=== PATIENT | male | born 1975 | race Caucasian/White ===

== ENCOUNTER 2020-04-10 10:28 | Inpatient (IN) | payer MEDICAID, OTHER ==
[~2020-04-10] VITALS: Ht 172.7 cm; Wt 100.6 kg
[~2020-04-10 10:28] MED LIST: ARIP15TA2 PO; CLOZ100T32 PO; DIVA-80 PO; OLAN2.5T3 PO; TRAZ150 PO
[2020-04-10] MEDS ORDERED: CLOZ100T32 PO (10:43)
[2020-04-10 11:42] LABS: BASOPHILS % (AUTO) 0.5 % (0.0-2.0); EOSINOPHILS % (AUTO) 2.1 % (1.0-6.0); HEMOGLOBIN 15.2 g/dL (13.5-17.5); LYMPHOCYTES # (AUTO) 1.6 K/uL (1.0-4.8); LYMPHOCYTES % (AUTO) 22.6 % (22.0-44.0); MEAN CORPUSCULAR HEMOGLOBIN 31.4 pg (26.0-34.0); MEAN CORPUSCULAR HGB CONC 34.5 G/dL (31.0-37.0); MEAN CORPUSCULAR VOLUME 91 fL (80-100); MONOCYTES # (AUTO) 0.5 K/uL (0.1-1.0); NEUTROPHILS # (AUTO) 4.8 K/uL (1.8-7.7); NEUTROPHILS % (AUTO) 67.8 % (40.0-70.0); PLATELET COUNT (AUTO) 222 K/uL (150-450); RED BLOOD CELL COUNT(AUTO) 4.84 MIL/uL (4.50-5.90); RED CELL DISTRIBUTION WIDTH 13.2 % (11.5-14.5)
[2020-04-10 11:49] LABS: AMPHET/METH SCREEN,URINE NEGATIVE (NEGATIVE); BARBITURATE SCREEN, URINE NEGATIVE (NEGATIVE); BENZODIAZEPINES SCREEN,URINE NEGATIVE (NEGATIVE); CANNABINOID SCREEN,URINE NEGATIVE (NEGATIVE); COCAINE SCREEN,URINE NEGATIVE (NEGATIVE); METHADONE SCREEN, URINE NEGATIVE (NEGATIVE); OPIATE SCREEN,URINE NEGATIVE (NEGATIVE); PHENCYCLIDINE SCREEN,URINE NEGATIVE (NEGATIVE)
[2020-04-10 12:00] LABS: ANION GAP 9 mmol/L (8-16); CALCIUM, TOTAL 9.1 mg/dL (8.8-10.5); CARBON DIOXIDE 28 mmol/L (22-29); CHLORIDE 108 mmol/L (98-107); CREATININE 0.94 mg/dL (0.60-1.30); GLOMERULAR FILTR. RATE CALC > 60 mL/min (>60); GLUCOSE,RANDOM 101 mg/dL (70-110); POTASSIUM 3.9 mmol/L (3.5-5.1); SODIUM SERUM 145 mmol/L (136-145); UREA NITROGEN, BLOOD 13 mg/dL (7-18)
[2020-04-10 12:04] LABS: ALANINE AMINOTRANSFERASE 72 U/L (12-78); ALKALINE PHOSPHATASE 83 U/L (46-116); ASPARTATE AMINOTRANSFERASE 31 U/L (15-37); BILIRUBIN,TOTAL 0.8 mg/dL (0.1-1.0)
[2020-04-10] MEDS ORDERED: ZOLPIDEM TARTRATE 10 MG TABLET PO PRN (13:45)
[2020-04-10] MEDS ORDERED: LORazepam 2 MG TABLET PO PRN (13:45)
[2020-04-10] MEDS ORDERED: HALOPERIDOL 5 MG TABLET PO PRN (13:45)
[2020-04-10] MEDS ORDERED: OLAN10TA3 PO (13:47)
[2020-04-10] MEDS: DIVALPROEX SODIUM 500 MG ER TABLET PO SCH (16:03)
[2020-04-10 17:05] VITALS: BP 134/86
[2020-04-10] MEDS: TERBINAFINE HCL 1% 30 GM CREAM TP SCH (20:29)
[2020-04-10] MEDS: TraZODone HCL 150 MG TABLET PO SCH (20:30)
[2020-04-10] MEDS: CloZAPine 100 MG TABLET PO SCH (20:31)
[2020-04-10] MEDS: OLANZapine 10 MG TABLET PO SCH (20:31)
[2020-04-11 06:49] LABS: BASOPHILS % (AUTO) 0.4 % (0.0-2.0); EOSINOPHILS % (AUTO) 4.3 % (1.0-6.0); HEMATOCRIT 43.4 % (41-53); HEMOGLOBIN 15.1 g/dL (13.5-17.5); LYMPHOCYTES # (AUTO) 2.1 K/uL (1.0-4.8); LYMPHOCYTES % (AUTO) 30.2 % (22.0-44.0); MEAN CORPUSCULAR HEMOGLOBIN 31.7 pg (26.0-34.0); MEAN CORPUSCULAR HGB CONC 34.8 G/dL (31.0-37.0); MEAN CORPUSCULAR VOLUME 91 fL (80-100); MONOCYTES # (AUTO) 0.5 K/uL (0.1-1.0); MONOCYTES % (AUTO) 7.1 % (2.0-9.0); PLATELET COUNT (AUTO) 212 K/uL (150-450); RED BLOOD CELL COUNT(AUTO) 4.75 MIL/uL (4.50-5.90); RED CELL DISTRIBUTION WIDTH 13.3 % (11.5-14.5)
[2020-04-11 07:17] LABS: ALANINE AMINOTRANSFERASE 67 U/L (12-78); ALBUMIN 3.7 g/dL (3.4-5.0); ALKALINE PHOSPHATASE 85 U/L (46-116); ANION GAP 6 mmol/L (8-16); ASPARTATE AMINOTRANSFERASE 26 U/L (15-37); BILIRUBIN,TOTAL 0.8 mg/dL (0.1-1.0); CALCIUM, TOTAL 8.7 mg/dL (8.8-10.5); CARBON DIOXIDE 30 mmol/L (22-29); CHLORIDE 107 mmol/L (98-107); CREATININE 1.06 mg/dL (0.60-1.30); GLOMERULAR FILTR. RATE CALC > 60 mL/min (>60); GLUCOSE,RANDOM 110 mg/dL (70-110); POTASSIUM 4.4 mmol/L (3.5-5.1); SODIUM SERUM 143 mmol/L (136-145); THYROID STIMULATING HORMONE 1.28 uIU/mL (0.36-3.74); TOTAL PROTEIN, SERUM 7.2 g/dL (6.4-8.2); UREA NITROGEN, BLOOD 15 mg/dL (7-18); VALPROIC ACID 34 mcg/mL (50-100)
[2020-04-11] MEDS: NICOTINE 14 MG/24 HOUR PATCH TD SCH (09:00)
[2020-04-11] MEDS: ARIPiprazole 15 MG TABLET PO SCH (09:04)
[2020-04-11] MEDS: TERBINAFINE HCL 1% 30 GM CREAM TP SCH ×2 (09:05→16:11)
[2020-04-11] MEDS: CloZAPine 100 MG TABLET PO SCH ×2 (09:05→20:24)
[2020-04-11] MEDS: DIVALPROEX SODIUM 500 MG ER TABLET PO SCH ×2 (09:07→16:11)
[2020-04-11 10:04] VITALS: BP 134/93
[2020-04-11 16:00] VITALS: BP 142/92
[2020-04-11 16:33] VITALS: BP 142/92
[2020-04-11] MEDS: OLANZapine 10 MG TABLET PO SCH (20:23)
[2020-04-11] MEDS: TraZODone HCL 150 MG TABLET PO SCH (20:24)
[2020-04-12] MEDS: DIVALPROEX SODIUM 500 MG ER TABLET PO SCH ×2 (08:34→16:29)
[2020-04-12] MEDS: ARIPiprazole 15 MG TABLET PO SCH (08:34)
[2020-04-12] MEDS: TERBINAFINE HCL 1% 30 GM CREAM TP SCH ×2 (08:35→16:29)
[2020-04-12] MEDS: CloZAPine 100 MG TABLET PO SCH ×2 (08:36→20:57)
[2020-04-12] MEDS: NICOTINE 14 MG/24 HOUR PATCH TD SCH (08:37)
[2020-04-12 08:57] VITALS: BP 131/72
[2020-04-12] MEDS ORDERED: PETROLATUM,WHITE 28 GM JELLY TP PRN (10:30)
[2020-04-12] MEDS ORDERED: ACETAMINOPHEN 325 MG TABLET PO PRN (10:30)
[2020-04-12] MEDS ORDERED: ONDANSETRON HCL 4 MG TABLET PO PRN (10:30)
[2020-04-12] MEDS ORDERED: CloNIDine HCL 0.1 MG TABLET PO PRN (10:30)
[2020-04-12] MEDS ORDERED: LOPERAMIDE HCL 2 MG CAPSULE PO PRN (10:30)
[2020-04-12] MEDS ORDERED: NICOTINE 14 MG/24 HOUR PATCH TD PRN (10:30)
[2020-04-12] MEDS ORDERED: GuaiFENesin/D-METHORPHAN [SUGAR-FREE] 200-20MG/10 ML SYRUP UDCUP PO PRN (10:30)
[2020-04-12] MEDS ORDERED: ALBUTEROL SULFATE HFA 90 MCG/PUFF 8 GM INHALER IH PRN (10:30)
[2020-04-12] MEDS ORDERED: IBUPROFEN 400 MG TABLET PO PRN (10:30)
[2020-04-12] MEDS ORDERED: MAGNESIUM HYDROXIDE SUSPENSION 30 ML UDCUP PO PRN (10:30)
[2020-04-12] MEDS ORDERED: DOCUSATE SODIUM 100 MG CAPSULE PO PRN (10:30)
[2020-04-12 16:24] VITALS: BP 138/86
[2020-04-12] MEDS: TraZODone HCL 150 MG TABLET PO SCH (20:57)
[2020-04-12] MEDS: OLANZapine 10 MG TABLET PO SCH (20:57)
[2020-04-12] MEDS: MAG HYDROX/AL HYDROX/SIMETH ES 30 ML SUSPENSION UDCUP PO PRN (21:25)
[2020-04-13 08:35] VITALS: BP 132/62
[2020-04-13] MEDS: ARIPiprazole 15 MG TABLET PO SCH (08:49)
[2020-04-13] MEDS: DIVALPROEX SODIUM 500 MG ER TABLET PO SCH ×2 (08:49→16:26)
[2020-04-13] MEDS: CloZAPine 100 MG TABLET PO SCH ×2 (08:49→20:04)
[2020-04-13] MEDS: NICOTINE 14 MG/24 HOUR PATCH TD SCH (09:00)
[2020-04-13] MEDS: TERBINAFINE HCL 1% 30 GM CREAM TP SCH ×2 (10:17→16:51)
[2020-04-13 12:43] VITALS: BP 116/88
[2020-04-13 12:55] VITALS: BP 153/65
[2020-04-13] MEDS: MAG HYDROX/AL HYDROX/SIMETH ES 30 ML SUSPENSION UDCUP PO PRN (13:52)
[2020-04-13 16:59] VITALS: BP 137/90
[2020-04-13] MEDS: TraZODone HCL 150 MG TABLET PO SCH (20:04)
[2020-04-13] MEDS: OLANZapine 10 MG TABLET PO SCH (20:04)
[2020-04-14 02:18] VITALS: BP 151/89
[2020-04-14] MEDS: ARIPiprazole 15 MG TABLET PO SCH (08:32)
[2020-04-14] MEDS: CloZAPine 100 MG TABLET PO SCH ×2 (08:32→20:07)
[2020-04-14] MEDS: TERBINAFINE HCL 1% 30 GM CREAM TP SCH ×2 (08:33→16:06)
[2020-04-14] MEDS: DIVALPROEX SODIUM 500 MG ER TABLET PO SCH ×2 (08:33→16:06)
[2020-04-14] MEDS: FLUTICASONE/VILANTEROL 200-25 MCG/INH INHALER [14] IH SCH (08:33)
[2020-04-14] MEDS: NICOTINE 14 MG/24 HOUR PATCH TD SCH (08:34)
[2020-04-14 08:54] VITALS: BP 138/86
[2020-04-14] MEDS: MAG HYDROX/AL HYDROX/SIMETH ES 30 ML SUSPENSION UDCUP PO PRN ×2 (10:00→20:08)
[2020-04-14 16:00] VITALS: BP 139/91
[2020-04-14] MEDS: TraZODone HCL 150 MG TABLET PO SCH (20:08)
[2020-04-14] MEDS: OLANZapine 10 MG TABLET PO SCH (20:08)
[2020-04-15] MEDS: CloZAPine 100 MG TABLET PO SCH ×2 (08:12→20:47)
[2020-04-15] MEDS: ARIPiprazole 15 MG TABLET PO SCH (08:12)
[2020-04-15] MEDS: DIVALPROEX SODIUM 500 MG ER TABLET PO SCH ×2 (08:13→16:40)
[2020-04-15] MEDS: FLUTICASONE/VILANTEROL 200-25 MCG/INH INHALER [14] IH SCH (08:13)
[2020-04-15] MEDS: NICOTINE 14 MG/24 HOUR PATCH TD SCH (08:14)
[2020-04-15 08:54] VITALS: BP 147/96
[2020-04-15] MEDS: MAG HYDROX/AL HYDROX/SIMETH ES 30 ML SUSPENSION UDCUP PO PRN (09:10)
[2020-04-15] MEDS: TERBINAFINE HCL 1% 30 GM CREAM TP SCH ×2 (10:43→16:40)
[2020-04-15 16:00] VITALS: BP 128/78
[2020-04-15] MEDS: OLANZapine 10 MG TABLET PO SCH (20:47)
[2020-04-15] MEDS: TraZODone HCL 150 MG TABLET PO SCH (20:47)
[2020-04-16 08:41] VITALS: BP 141/89
[2020-04-16] MEDS: NICOTINE 14 MG/24 HOUR PATCH TD SCH (09:00)
[2020-04-16] MEDS: CloZAPine 100 MG TABLET PO SCH ×2 (10:48→20:01)
[2020-04-16] MEDS: DIVALPROEX SODIUM 500 MG ER TABLET PO SCH ×2 (10:48→16:28)
[2020-04-16] MEDS: ARIPiprazole 15 MG TABLET PO SCH (10:48)
[2020-04-16] MEDS: TERBINAFINE HCL 1% 30 GM CREAM TP SCH ×2 (10:49→16:28)
[2020-04-16] MEDS: FLUTICASONE/VILANTEROL 200-25 MCG/INH INHALER [14] IH SCH (10:50)
[2020-04-16 16:08] VITALS: BP 134/86
[2020-04-16] MEDS: MAG HYDROX/AL HYDROX/SIMETH ES 30 ML SUSPENSION UDCUP PO PRN (19:17)
[2020-04-16] MEDS: TraZODone HCL 150 MG TABLET PO SCH (20:01)
[2020-04-16] MEDS: OLANZapine 10 MG TABLET PO SCH (20:01)
[2020-04-17] MEDS: MAG HYDROX/AL HYDROX/SIMETH ES 30 ML SUSPENSION UDCUP PO PRN ×2 (01:23→10:14)
[2020-04-17 01:25] VITALS: BP 155/91
[2020-04-17] MEDS: DIVALPROEX SODIUM 500 MG ER TABLET PO SCH (08:11)
[2020-04-17] MEDS: CloZAPine 100 MG TABLET PO SCH (08:15)
[2020-04-17] MEDS: ARIPiprazole 15 MG TABLET PO SCH (08:16)
[2020-04-17] MEDS: FLUTICASONE/VILANTEROL 200-25 MCG/INH INHALER [14] IH SCH (08:17)
[2020-04-17] MEDS: NICOTINE 14 MG/24 HOUR PATCH TD SCH (08:17)
[2020-04-17] MEDS: TERBINAFINE HCL 1% 30 GM CREAM TP SCH (08:18)
[2020-04-17 08:58] VITALS: BP 133/89
[2020-04-17 10:19] VITALS: BP 87/59
[2020-04-17] MEDS ORDERED: FLUT1BLS IH (11:30)
[2020-04-17] MEDS ORDERED: TERB15CR21 TP (12:08)
== END 2020-04-17 13:30 | disposition home or self-care (01) | DRG 885 ==
LOC: EMS 10:36 → 3EI 13:32
PROVIDERS: ADMIT Psychiatry & Neurology Psychiatry; ATTEND Psychiatry & Neurology Psychiatry
DX: F20.0 Paranoid schizophrenia (principal); F41.9 Anxiety disorder, unspecified; K59.00 Constipation, unspecified; G47.00 Insomnia, unspecified; R03.0 Elevated blood-pressure reading, without diagnosis of hypertension
CPT/HCPCS: 84439; 84443; G0480

== ENCOUNTER 2021-11-29 20:31 | Inpatient (IN) | payer MEDICAID, OTHER ==
[~2021-11-29] VITALS: Ht 172.7 cm; Wt 107.6 kg
[~2021-11-29 20:31] MED LIST changes: -ARIP15TA2 PO; +ARIP15TA27 PO; +FLUT1BLS IH; +OLAN10TA74 PO; -OLAN2.5T3 PO; +TERB15CR21 TP; -TRAZ150 PO; +TRAZ150T80 PO
[2021-11-29 21:16] LABS: BASOPHILS % (AUTO) 0.1 % (0.0-2.0); EOSINOPHILS % (AUTO) 0 % (1.0-6.0); HEMATOCRIT 43.6 % (41-53); LYMPHOCYTES # (AUTO) 2.3 K/uL (1.0-4.8); LYMPHOCYTES % (AUTO) 31.6 % (22.0-44.0); MEAN CORPUSCULAR HEMOGLOBIN 30.4 pg (26.0-34.0); MEAN CORPUSCULAR HGB CONC 34.3 G/dL (31.0-37.0); MEAN CORPUSCULAR VOLUME 89 fL (80-100); MONOCYTES # (AUTO) 0.4 K/uL (0.1-1.0); MONOCYTES % (AUTO) 6.1 % (2.0-9.0); NEUTROPHILS # (AUTO) 4.5 K/uL (1.8-7.7); NEUTROPHILS % (AUTO) 62.2 % (40.0-70.0); PLATELET COUNT (AUTO) 198 K/uL (150-450); RED BLOOD CELL COUNT(AUTO) 4.92 MIL/uL (4.50-5.90); RED CELL DISTRIBUTION WIDTH 13.2 % (11.5-14.5)
[2021-11-29 21:34] LABS: ANION GAP 11 mmol/L (8-16); CALCIUM, TOTAL 8.8 mg/dL (8.8-10.5); CARBON DIOXIDE 25 mmol/L (22-29); CHLORIDE 103 mmol/L (98-107); CREATININE 1.17 mg/dL (0.60-1.30); GLOMERULAR FILTR. RATE CALC > 60 mL/min (>60); GLUCOSE,RANDOM 221 mg/dL (70-110); POTASSIUM 3.5 mmol/L (3.5-5.1); SODIUM SERUM 139 mmol/L (136-145); UREA NITROGEN, BLOOD 9 mg/dL (7-18)
[2021-11-29 21:40] LABS: ALANINE AMINOTRANSFERASE 113 U/L (12-78); ALBUMIN 3.8 g/dL (3.4-5.0); ALKALINE PHOSPHATASE 92 U/L (46-116); ASPARTATE AMINOTRANSFERASE 45 U/L (15-37); BILIRUBIN,TOTAL 0.4 mg/dL (0.1-1.0); TOTAL PROTEIN, SERUM 7.7 g/dL (6.4-8.2)
[2021-11-29 23:03] LABS: AMPHET/METH SCREEN,URINE NEGATIVE (NEGATIVE); BARBITURATE SCREEN, URINE NEGATIVE (NEGATIVE); BENZODIAZEPINES SCREEN,URINE NEGATIVE (NEGATIVE); CANNABINOID SCREEN,URINE NEGATIVE (NEGATIVE); COCAINE SCREEN,URINE NEGATIVE (NEGATIVE); METHADONE SCREEN, URINE NEGATIVE (NEGATIVE); OPIATE SCREEN,URINE NEGATIVE (NEGATIVE)
[2021-11-29 23:10] LABS: COVID AG,FIA SOURCE NASOPHARYNGEAL
[2021-11-29 23:15] LABS: PHENCYCLIDINE SCREEN,URINE NEGATIVE (NEGATIVE)
[2021-11-30] MEDS ORDERED: HALOPERIDOL 5 MG TABLET PO PRN
[2021-11-30] MEDS ORDERED: ZOLPIDEM TARTRATE 10 MG TABLET PO PRN
[2021-11-30] MEDS ORDERED: LORazepam 2 MG TABLET PO PRN
[2021-11-30 05:54] VITALS: BP 145/88
[2021-11-30] MEDS ORDERED: INFLUENZA VIRUS VACCINE QVS 2021-22 (6MO+)/PF 60 MCG/0.5 ML SYRINGE IM. ONE (06:00)
[2021-11-30 10:12] VITALS: BP 127/79
[2021-11-30 16:21] VITALS: BP 127/72
[2021-11-30] MEDS: DIVALPROEX SODIUM 500 MG DR TABLET PO SCH (16:31)
[2021-11-30] MEDS ORDERED: MAGNESIUM HYDROXIDE SUSPENSION 30 ML UDCUP PO PRN (18:00)
[2021-11-30] MEDS ORDERED: IBUPROFEN 600 MG TABLET PO PRN (18:00)
[2021-11-30] MEDS ORDERED: ALBUTEROL SULFATE HFA 90 MCG/PUFF 8 GM INHALER IH PRN (18:00)
[2021-11-30] MEDS ORDERED: ONDANSETRON HCL 4 MG TABLET PO PRN (18:00)
[2021-11-30] MEDS ORDERED: DOCUSATE SODIUM 100 MG CAPSULE PO PRN (18:00)
[2021-11-30] MEDS ORDERED: ACETAMINOPHEN 325 MG TABLET PO PRN (18:00)
[2021-11-30] MEDS ORDERED: PETROLATUM,WHITE 28 GM JELLY TP PRN (18:00)
[2021-11-30] MEDS ORDERED: LOPERAMIDE HCL 2 MG CAPSULE PO PRN (18:00)
[2021-11-30] MEDS ORDERED: OMEPRAZOLE 20 MG CAPSULE PO PRN (18:00)
[2021-11-30] MEDS ORDERED: BENZOCAINE/MENTHOL LOZENGE PO PRN (18:00)
[2021-11-30] MEDS ORDERED: BACITRACIN 28 GM OINTMENT TP PRN (18:00)
[2021-11-30] MEDS ORDERED: CloNIDine HCL 0.1 MG TABLET PO PRN (18:00)
[2021-11-30] MEDS: CloZAPine 100 MG TABLET PO SCH (20:21)
[2021-11-30] MEDS: TraZODone HCL 150 MG TABLET PO SCH (20:21)
[2021-11-30] MEDS ORDERED: CloZAPine 100 MG TABLET PO SCH (21:00)
[2021-12-01 00:33] VITALS: BP 130/70
[2021-12-01 03:55] VITALS: BP 164/95
[2021-12-01] MEDS: CloZAPine 100 MG TABLET PO SCH ×2 (08:24→20:32)
[2021-12-01] MEDS: DIVALPROEX SODIUM 500 MG DR TABLET PO SCH ×2 (08:24→16:38)
[2021-12-01 08:31] VITALS: BP 136/72
[2021-12-01] MEDS: MAG HYDROX/AL HYDROX/SIMETH ES 30 ML SUSPENSION UDCUP PO PRN (13:43)
[2021-12-01 16:15] VITALS: BP 122/55
[2021-12-01] MEDS: TraZODone HCL 150 MG TABLET PO SCH (20:31)
[2021-12-02 06:15] VITALS: BP 131/76
[2021-12-02] MEDS: CloZAPine 100 MG TABLET PO SCH ×2 (08:09→20:12)
[2021-12-02] MEDS: DIVALPROEX SODIUM 500 MG DR TABLET PO SCH ×2 (08:09→17:01)
[2021-12-02 08:15] VITALS: BP 143/77
[2021-12-02 16:17] VITALS: BP 123/80
[2021-12-02] MEDS: MAG HYDROX/AL HYDROX/SIMETH ES 30 ML SUSPENSION UDCUP PO PRN (18:29)
[2021-12-02] MEDS: TraZODone HCL 150 MG TABLET PO SCH (20:11)
[2021-12-03 06:17] VITALS: BP 134/68
[2021-12-03 08:38] VITALS: BP 157/85
[2021-12-03] MEDS: DIVALPROEX SODIUM 500 MG DR TABLET PO SCH (09:04)
[2021-12-03] MEDS: CloZAPine 100 MG TABLET PO SCH (09:04)
[2021-12-03] MEDS: MAG HYDROX/AL HYDROX/SIMETH ES 30 ML SUSPENSION UDCUP PO PRN (09:42)
[2021-12-03] MEDS ORDERED: DIVA-112 PO (13:19)
[2021-12-03] MEDS ORDERED: TRAZ-283 PO (13:19)
[2021-12-03] MEDS ORDERED: CLOZ100T31 PO ×2 (13:19)
[2021-12-07] MEDS ORDERED: FLUT1BLS IH (12:57)
== END 2021-12-03 15:10 | disposition home or self-care (01) | DRG 750 ==
LOC: EMS 20:35 → B2S 11-30 03:08
PROVIDERS: ADMIT Psychiatry & Neurology Psychiatry; ATTEND Psychiatry & Neurology Psychiatry
DX: F20.0 Paranoid schizophrenia (principal); E11.9 Type 2 diabetes mellitus without complications; E66.9 Obesity, unspecified; Z68.36 Body mass index [BMI] 36.0-36.9, adult; F15.11 Other stimulant abuse, in remission; F10.11 Alcohol abuse, in remission; K21.9 Gastro-esophageal reflux disease without esophagitis; I10 Essential (primary) hypertension; F17.210 Nicotine dependence, cigarettes, uncomplicated; F19.10 Other psychoactive substance abuse, uncomplicated; G47.00 Insomnia, unspecified; K59.00 Constipation, unspecified; F41.9 Anxiety disorder, unspecified; Z20.822 Contact with and (suspected) exposure to COVID-19; Z79.899 Other long term (current) drug therapy
CPT/HCPCS: 80053; 85025; 99285; G0480